=== PATIENT | female | born 1995 | race Caucasian/White ===

== ENCOUNTER 2025-07-05 22:03 | Emergency (ER) | payer SELFPAY ==
[2025-07-05] MEDS ORDERED: Acetaminophen 500 MG TAB ONE (22:42)
[2025-07-05] MEDS ORDERED: diphenhydrAMINE 50 MG/ML VIAL ONE (22:42)
[2025-07-05] MEDS ORDERED: Metoclopramide HCl 10 MG (2 mL) VIAL ONE (22:42)
== END 2025-07-06 00:42 | disposition home or self-care (01) ==
LOC: ERS 22:03
DX: O99.891 Other specified diseases and conditions complicating pregnancy (principal); R51.9 Headache, unspecified; R00.0 Tachycardia, unspecified; Z3A.16 16 weeks gestation of pregnancy
CPT/HCPCS: 93005; 96365; 96366; 96375; J1200; J2765